=== PATIENT | male | born 1995 | race Two or more races ===

== ENCOUNTER 2016-10-06 00:59 | Emergency (ER) | payer SELFPAY ==
[2016-10-06] MEDS ORDERED: HYDROCODONE/ACETAMINOPHEN 5/325MG TABLET ONE (01:37)
== END 2016-10-06 02:23 | disposition home or self-care (01) ==
LOC: ED 00:59
DX: L73.2 Hidradenitis suppurativa (principal); E11.65 Type 2 diabetes mellitus with hyperglycemia; F17.210 Nicotine dependence, cigarettes, uncomplicated; Z91.14 Patient's other noncompliance with medication regimen
CPT/HCPCS: 99283 ×2; 10060 ×2; A9270